=== PATIENT | female | born 1995 | race African-American/Black ===

== ENCOUNTER 2019-01-30 14:49 | Emergency (ER) | payer BC, MEDICAID ==
[~2019-01-30] VITALS: Ht 165.1 cm; Wt 90.0 kg
[2019-01-30 16:48] LABS: CLARITY URINE CLEAR (CLEAR); COLOR URINE YELLOW (YELLOW); KETONES URINE NEGATIVE (NEGATIVE); LEUKOCYTE ESTERASE URINE NEGATIVE (NEGATIVE); NITRITE URINE NEGATIVE (NEGATIVE); OCCULT BLOOD URINE NEGATIVE (NEGATIVE); PROTEIN URINE NEGATIVE (NEGATIVE); SPECIFIC GRAVITY URINE 1.013 (1.005-1.030); UROBILINOGEN URINE 0.2 E.U./dL (0.2-1.0)
[2019-01-30 16:55] VITALS: BP 122/72
== END 2019-01-30 17:02 | disposition home or self-care (01) ==
LOC: ER 15:24
DX: R35.0 Frequency of micturition (principal); R39.15 Urgency of urination; Z98.890 Other specified postprocedural states
CPT/HCPCS: 81025; 99283

== ENCOUNTER 2019-10-20 15:19 | Emergency (ER) | payer BC, MEDICAID ==
[~2019-10-20] VITALS: Ht 165.1 cm; Wt 90.0 kg
[2019-10-20 15:30] VITALS: BP 114/71
== END 2019-10-20 17:16 | disposition home or self-care (01) ==
LOC: ER 15:19
DX: J06.9 Acute upper respiratory infection, unspecified (principal); J45.909 Unspecified asthma, uncomplicated
CPT/HCPCS: 99283

== ENCOUNTER 2021-08-24 09:28 | Emergency (ER) | payer MEDICAID, OTHER ==
[~2021-08-24] VITALS: Ht 162.6 cm; Wt 79.0 kg
[2021-08-24] MEDS ORDERED: KETOROLAC 30MG/ML VIAL IV STA (10:19)
[2021-08-24] MEDS ORDERED: CEFTRIAXONE 1 G PREMIX 50 ML IV ONE (10:30)
[2021-08-24] MEDS ORDERED: DEXAMETHASONE 10 MG/ML VIAL IV ONE (10:30)
[2021-08-24] MEDS ORDERED: IBUP-2028 MT (11:26)
[2021-08-24] MEDS ORDERED: AMOX-424 MT (11:26)
[2021-08-24 12:03] VITALS: BP 118/61
== END 2021-08-24 12:05 | disposition home or self-care (01) ==
LOC: ER 09:48
DX: L03.211 Cellulitis of face (principal); K04.7 Periapical abscess without sinus; J45.909 Unspecified asthma, uncomplicated; Z98.890 Other specified postprocedural states
CPT/HCPCS: 81025; 96374; 96375; 99284; J0696; J1100; J1885; Z7610

== ENCOUNTER 2022-02-18 16:36 | Emergency (ER) | payer MEDICAID ==
[~2022-02-18 16:36] MED LIST: AMOX-424 MT; IBUP-2028 MT
== END 2022-02-18 18:21 | disposition left against medical advice (07) ==
LOC: ER 16:36
DX: Z53.21 Procedure and treatment not carried out due to patient leaving prior to being seen by health care provider (principal)

== ENCOUNTER 2023-08-22 23:48 | Emergency (ER) | payer MEDICAID, OTHER ==
[~2023-08-22] VITALS: Ht 165.1 cm; Wt 77.0 kg
[2023-08-23 00:07] VITALS: BP 143/89; PULSE 67; RESP 16; TEMP 98.4; O2SAT 100
[2023-08-23 06:09] LABS: CLARITY URINE CLEAR (CLEAR); COLOR URINE YELLOW (YELLOW); GLUCOSE URINE NEGATIVE (NEGATIVE); KETONES URINE NEGATIVE (NEGATIVE); LEUKOCYTE ESTERASE URINE NEGATIVE (NEGATIVE); NITRITE URINE NEGATIVE (NEGATIVE); OCCULT BLOOD URINE NEGATIVE (NEGATIVE); PH URINE 5.5 (4.5-8.0); PROTEIN URINE NEGATIVE (NEGATIVE); SPECIFIC GRAVITY URINE 1.022 (1.005-1.030); UROBILINOGEN URINE 0.2 E.U./dL (0.2-1.0)
[2023-08-23] MEDS ORDERED: SULF1TAB48 MT (06:11)
== END 2023-08-23 06:45 | disposition home or self-care (01) ==
LOC: ER 23:48
DX: N94.89 Other specified conditions associated with female genital organs and menstrual cycle (principal); J45.909 Unspecified asthma, uncomplicated
CPT/HCPCS: 81003; 99283

== ENCOUNTER 2024-04-11 19:45 | Emergency (ER) | payer MEDICAID ==
[~2024-04-11] VITALS: Ht 162.6 cm; Wt 80.4 kg
[~2024-04-11 19:45] MED LIST changes: +SULF1TAB48 MT
[2024-04-11 20:37] VITALS: BP 143/106; PULSE 74; RESP 18; TEMP 98.3; O2SAT 100
[2024-04-11] MEDS: METOCLOPRAMIDE HCL 10MG/2ML VIAL IV STA ×2 (21:36→23:31)
[2024-04-11] MEDS: SODIUM CHLORIDE 0.9% 1,000 ML IV ONE ×2 (21:45→23:31)
[2024-04-11 21:52] LABS: CHLORIDE 103 mEq/L (98-107); POTASSIUM 3.9 mEq/L (3.5-5.1); SODIUM 135 mEq/L (136-145)
[2024-04-11 21:53] LABS: BASOPHILS % 0.5 % (0.0-2.0); CALCIUM 9.6 mg/dL (8.7-10.4); CARBON DIOXIDE 24 mEq/L (21-32); EOSINOPHILS % 0.3 % (0.0-5.0); HEMOGLOBIN. 12.1 g/dL (12.0-16.0); LYMPHOCYTES % 20.6 % (20.0-50.0); MEAN CORPUSCULAR HEMOGLOBIN 27.4 pg (28.0-32.0); MEAN CORPUSCULAR HGB CONC 33.5 g/dL (31.0-37.0); MEAN CORPUSCULAR VOLUME 81.6 fL (81.0-99.0); MEAN PLATELET VOLUME 11.9 fl (7.4-10.4); MONOCYTES % 7.8 % (2.0-8.0); NEUTROPHILS % 70.8 % (40.0-76.0); PLATELET 152 x1000/uL (130-400); RED BLOOD CELL COUNT 4.42 mill/uL (4.2-5.4); RED CELL DISTRIBUTION WIDTH 15.7 % (11.6-14.6); WHITE BLOOD COUNT 5.7 x1000/uL (4.5-11.0)
[2024-04-11 21:54] LABS: HCG SCREEN POSITIVE
[2024-04-11 21:58] LABS: CREATININE 0.7 mg/dL (0.6-1.0); GLUCOSE 86 mg/dL (70-105); UREA NITROGEN BLOOD 10 mg/dL (9-23)
[2024-04-11 22:00] LABS: ALANINE AMINOTRANSFERASE 8 IU/L (10-49); ALBUMIN 4.4 g/dL (3.2-4.8); ASPARTATE AMINOTRANSFERASE 15 IU/L (<34); BILIRUBIN DIRECT 0.2 mg/dL (<=3.0); BILIRUBIN TOTAL 0.5 mg/dL (0.1-1.0); PROTEIN TOTAL 8.1 g/dL (6.0-8.3)
[2024-04-12 01:40] LABS: CLARITY URINE CLOUDY (CLEAR); COLOR URINE YELLOW (YELLOW); GLUCOSE URINE NEGATIVE (NEGATIVE); KETONES URINE 4+ (NEGATIVE); LEUKOCYTE ESTERASE URINE NEGATIVE (NEGATIVE); NITRITE URINE NEGATIVE (NEGATIVE); OCCULT BLOOD URINE NEGATIVE (NEGATIVE); PROTEIN URINE 1+ (NEGATIVE); SPECIFIC GRAVITY URINE 1.038 (1.005-1.030)
[2024-04-12] MEDS ORDERED: PYRI25TA4 MT (01:53)
[2024-04-12] MEDS ORDERED: METO-293 MT (01:53)
[2024-04-12 02:25] LABS: SQUAMOUS EPITHELIAL CELL URINE FEW /lpf (RARE/1+)
[2024-04-12 02:31] LABS: BACTERIA URINE NONE SEEN; RBC URINE 0-2 /hpf (0-2); WBC URINE 0-2 /hpf (0-2)
== END 2024-04-12 03:00 | disposition home or self-care (01) ==
LOC: ER 19:45
DX: O21.9 Vomiting of pregnancy, unspecified (principal); O99.511 Diseases of the respiratory system complicating pregnancy, first trimester; E86.0 Dehydration; Z3A.09 9 weeks gestation of pregnancy; Z98.890 Other specified postprocedural states; Z79.899 Other long term (current) drug therapy
CPT/HCPCS: 99285; 96374; 76801; 96361; 80076; 80048; 81003; 81025; 84703; 84702; 83690; 85025; 36415; J2765; J7030